=== PATIENT | female | born 1940 | race Caucasian/White ===

== ENCOUNTER → 2016-07-04 | Outpatient (CLI) | payer MEDICARE, BC ==
[~2016-07-04] MED LIST: ATOR20TA PO; BABY81CH PO; CALCTAB77 PO; CARV3.12 PO; CARV6.25 PO; DIOV160T60 PO; DYAZ37.52 PO; EZET10 PO; GLUCTAB PO; ROBA750T3 PO
== END ==
LOC: CLAB 07:06
PROVIDERS: ATTEND Internal Medicine Cardiovascular Disease
DX: R07.9 Chest pain, unspecified (principal); R60.9 Edema, unspecified; R06.09 Other forms of dyspnea
CPT/HCPCS: 36415; 85379